=== PATIENT | male | born 1935 | race Caucasian/White ===

== ENCOUNTER 2019-07-29 18:44 | Emergency (ER) | payer OTHER ==
--- NOTE | 2019-07-29 18:49 | PDOC ---
Rapid Medical Evaluation Chief Complaint: Nausea/Vomiting Time Seen by Provider: 07/29/19 18:47 Medical Evaluation: Allergies Allergy/AdvReac Type Severity Reaction Status Date / Time No Known Allergies Allergy Verified 07/03/15 13:55 07/29/19 18:48 Pt c/o: n/v/d, since this am, gen abd pain this am, now slightly confused (as per daughter) no other complaints Pt on brief exam: vss, alert, oriented, no abd tenderness pt ordered for: labs and urine, iv pt to proceed to the ED Discharge Disposition - Diagnosis Vomiting - Referrals - Patient Instructions - Post Discharge Activity
[2019-07-29] MEDS ORDERED: SODIUM CHLORIDE 500 ML IV STA (18:50)
[2019-07-29 18:51] VITALS: BMI 26.2
[2019-07-29 19:25] LABS: BASO % 0.4 % (0-2.0); HEMATOCRIT 35.7 % (35.4-49); HEMOGLOBIN 11.7 GM/dL (11.7-16.9); LYMPH % 2.9 % (8-40); MCH 31.6 pg (25.7-33.7); MCHC 32.9 g/dl (32.0-35.9); MEAN CELL VOLUME 96.2 fl (80-96); MONO % 5.8 % (3.8-10.2); NEUT % 89.9 % (42.8-82.8); PLATELET COUNT 233 K/MM3 (134-434); RBC 3.71 M/mm3 (4.00-5.60); RDW 13.1 % (11.9-15.9); WHITE BLOOD COUNT 10.1 K/mm3 (4.0-10.0)
--- NOTE | 2019-07-29 19:27 | PDOC ---
Documentation entered by Melania Mcqueen SCRIBE, acting as scribe for Michelle Varma MD. Michelle Varma MD: This documentation has been prepared by the leandroibe, Melania Mcqueen SCRIBE, under my direction and personally reviewed by me in its entirety. I confirm that the documentation accurately reflects all work, treatment, procedures, and medical decision making performed by me. Attending Attestation - Resident Resident Name: Angel Osorio - ED Attending Attestation I have performed the following: I have examined & evaluated the patient, The case was reviewed & discussed with the resident, I agree w/resident's findings & plan, Exceptions are as noted - HPI HPI: 07/29/19 19:40 The patient is an 83-year-old male with a past medical history significant for HTN, HLD, hypothyroidism, who presents to the emergency department with diarrhea and confusion. The daughter reports the patient had three episodes of watery bowel movement yesterday and 1 episode today. The patient was noted to be his usual self this morning at 7:00 am when the daughter left for work, however, when she returned at 6:00 pm, the patient was noted to be talking to someone who wasnt there, and daughter reports his speech didnt seem right. Allergies: NKA PCP: Follow up at [facility]. - Physicial Exam PE: 07/29/19 19:35 GENERAL: Well-appearing, well-nourished. No apparent distress. HEENT: No head trauma. Normocephalic, atraumatic. PERRL, EOM intact. NECK: supple, No bruit. CARDIOVASCULAR: Regular rate and rhythm. PULMONARY: Clear to auscultation bilaterally. ABDOMEN: No focal abdominal tenderness. Soft, non-distended, non-tender. EXTREMITIES: No pitting edema. Normal ROM in all four extremities. No gross deformities. SKIN: Warm, dry. No rash NEUROLOGICAL: conversant, Alert and oriented x1, moving all extremities. - Medical Decision Making 07/29/19 22:05 Repeat blood pressure systolic was 107 CAT scan of the head was negative for any acute intracranial pathology Labs show renal insufficiency with a creatinine 1.9 We do not have prior chemistries for comparison Patient referred to [facility]. to follow-up with PCP Nausea and vomiting resolved Impression gastroenteritis, renal insufficiency
[2019-07-29 19:31] LABS: EPI CELLS 3.1 /HPF (0-5/HPF); HYALINE CASTS 19 /lpf (0-8); URINE APPEARANCE CLEAR; URINE BACTERIA 0.3 /hpf (NEGATIVE); URINE BILIRUBIN NEGATIVE (NEGATIVE); URINE COLOR YELLOW; URINE GLUCOSE (UA) NEGATIVE (NEGATIVE); URINE KETONE TRACE (NEGATIVE); URINE LEUK ESTERASE NEGATIVE (NEGATIVE); URINE NITRITE NEGATIVE (NEGATIVE); URINE PROTEIN 1+ (NEGATIVE); URINE RBC 9 /hpf (0-4); URINE UROBILINOGEN 0.2 mg/dL (0.2-1.0); URINE WBC 1 /hpf (0-5)
[2019-07-29] MEDS ORDERED: SODIUM CHLORIDE 0.9% 500 ML INFUS.BAG IV ONE ×2 (19:39→20:27)
[2019-07-29 19:43] LABS: LIPASE 132 U/L (73-393)
[2019-07-29 19:50] LABS: ALBUMIN 3.7 g/dl (3.4-5.0); BILIRUBIN,TOTAL 0.3 mg/dL (0.2-1); CALCIUM 8.5 mg/dL (8.5-10.1); CREATININE 1.9 mg/dL (0.55-1.3); POTASSIUM 4.7 mmol/L (3.5-5.1); TOT PROT 7.1 g/dl (6.4-8.2)
--- NOTE | 2019-07-29 20:06 | PDOC ---
History of Present Illness - General Chief Complaint: Nausea/Vomiting Stated Complaint: Vomiting, confusion Time Seen by Provider: 07/29/19 18:47 - History of Present Illness Initial Comments: The pt is a 83M w/ a history of hypothyroidism, HTN, HLD who presents for evaluation of 2 days of NBNB vomiting, NB diarrhea, and confusion. The pt reports 1 episode of vomiting today and 3 yesterday. Reports 3 episodes of watery diarrhea today. Per the pt's daughter the pt was noticed to be confused at home, stating that he was talking to people who weren't there and states seeing people that weren't there. The pt was last seen well at 0700 this AM. Pt and family deny falls/trauma. Pt has been compliant with meds Denies fevers/chills, cough, chest pain, abdominal pain, dysuria, hematuria, or changes in sensation 07/29/19 20:00 Past History - Past Medical History Allergies/Adverse Reactions: Allergies Allergy/AdvReac Type Severity Reaction Status Date / Time No Known Allergies Allergy Verified 07/29/19 18:51 Home Medications: Ambulatory Orders NK [No Known Home Medication] 07/29/19 COPD: No GI Disorders: Yes (GERD) HTN: Yes Hypercholesterolemia: Yes Kidney Stones: (kidney problem) Other medical history: Glaucoma - Immunization History Td Vaccination: No - Psycho Social/Smoking Cessation Hx Smoking Status: No Smoking History: Never smoked Number of Cigarettes Smoked Daily: 0 Information on smoking cessation initiated: No Hx Alcohol Use: No Drug/Substance Use Hx: No Substance Use Type: None Review of Systems - Review of Systems Able to Perform ROS?: Yes Comments:: GENERAL/CONSTITUTIONAL: No fever or chills. No weakness HEAD, EYES, EARS, NOSE AND THROAT: No change in vision. No change in hearing. No sore throat CARDIOVASCULAR: No chest pain or shortness of breath RESPIRATORY: Denies cough, hemoptysis GASTROINTESTINAL: per HPI GENITOURINARY: No dysuria, frequency, or change in urination MUSCULOSKELETAL: No joint or muscle swelling or pain. No neck or back pain SKIN: No rash NEUROLOGIC: No headache, vertigo, loss of consciousness, or change in strength/ sensation ENDOCRINE: No increased thirst. No abnormal weight change HEMATOLOGIC/LYMPHATIC: No anemia, easy bleeding, or history of blood clots ALLERGIC/IMMUNOLOGIC: No hives or skin allergy 07/29/19 20:59 *Physical Exam - Vital Signs Last Vital Signs Temp Pulse Resp BP Pulse Ox 98 F 105 H 19 86/50 L 97 07/29/19 18:48 07/29/19 18:48 07/29/19 18:48 07/29/19 18:48 07/29/19 18:48 - Physical Exam GENERAL: Awake, alert, and oriented to person/place/time, in no acute distress HEAD: No signs of trauma, normocephalic, atraumatic EYES: PERRLA, EOMI, sclera anicteric, conjunctiva clear ENT: Hearing grossly normal, nares patent, oropharynx clear without exudates. Moist mucosa LUNGS: No distress, speaks in full sentences, clear to auscultation bilaterally HEART: Regular rate and rhythm, normal S1 and S2, no murmurs appreciated, peripheral pulses normal and equal bilaterally ABDOMEN: Soft, nontender, normoactive bowel sounds. No guarding, no rebound EXTREMITIES: Normal inspection, Normal range of motion, no edema. No clubbing or cyanosis NEUROLOGICAL: Cranial nerves II through XII grossly intact. Normal speech, normal gait, no focal sensorimotor deficits SKIN: Warm, Dry 07/29/19 20:59 ED Treatment Course - LABORATORY CBC & Chemistry Diagram: 07/29/19 19:05 07/29/19 19:05 - ADDITIONAL ORDERS Additional order review: Laboratory Results 07/29/19 07/29/19 07/29/19 19:05 19:05 19:05 Sodium 138 Potassium 4.7 Chloride 108 H Carbon Dioxide 22 Anion Gap 9 BUN 50.0 H Creatinine 1.9 H Est GFR (CKD-EPI)AfAm 37.48 Est GFR (CKD-EPI)NonAf 32.34 Random Glucose 146 H Calcium 8.5 Magnesium 2.0 Total Bilirubin 0.3 AST 27 ALT 35 Alkaline Phosphatase 51 Total Protein 7.1 Albumin 3.7 Lipase 132 Urine Color Yellow Urine Appearance Clear Urine pH 5.0 Ur Specific [place] 1.019 Urine Protein 1+ H Urine Glucose (UA) Negative Urine Ketones Trace H Urine Blood 2+ H Urine Nitrite Negative Urine Bilirubin Negative Urine Urobilinogen 0.2 Ur Leukocyte Esterase Negative Urine WBC (Auto) 1 Urine RBC (Auto) 9 Urine Casts (Auto) 19 U Epithel Cells (Auto) 3.1 Urine Bacteria (Auto) 0.3 07/29/19 19:05 RBC 3.71 L MCV 96.2 H MCHC 32.9 RDW 13.1 MPV 8.0 Neutrophils % 89.9 H Lymphocytes % 2.9 L Monocytes % 5.8 Eosinophils % 1.0 Basophils % 0.4 - RADIOLOGY Radiology Studies Ordered: Category Date Time Status HEAD CT WITHOUT CONTRAST [CT] Stat CT Scan 07/29/19 19:40 Ordered Radiograph Interpretation: CT/HEAD CT WITHOUT CONTRAST No intracranial hemorrhage is seen. There is no extra-axial fluid collection. No obvious mass lesion or infarct is noted. Mild periventricular chronic microvascular ischemic changes are seen. Involutional changes are noted with mild ventricular dilatation. The calvarium appears intact. Impression: No CT evidence of acute intracranial pathology. There is moderate to marked bilateral ethmoid sinus opacification is seen consistent with sinusitis - ? chronic versus acute. Correlate clinically. 07/29/19 21:32 Medical Decision Making - Medical Decision Making The pt is a 83M w/ a history of hypothyroidism, HTN, HLD who presents for evaluation of 2 days of NBNB vomiting, NB diarrhea, and confusion. Ddx: ACS, stroke, lyte disturbance, thyroid disfunction, infection, anemia ED Course CMP, CBC, TSH, Trop I, UA, UCx ECG CXR CT head ECG w/ sinus tachycardia; HR 100; QTc 446; no SAJI 07/29/19 20:06 No leukocytosis No anemia Lytes unremarkable BUN/Cr elevated, no previous to compare. Pt may have history of CKD but pt and family are unsure of severity LFTs wnl TSH wnl 07/29/19 20:12 Trop I neg Pt pending CT head 07/29/19 20:27 UA w/ ketones, pt given 2L IVF -no evidence of UTI 07/29/19 21:27 CT head w/o acute pathology Plan for D/C w/ PCP and neurology f/u Discharge instructions and return precautions given Patient in agreement and verbalized understanding Dispo: Home 07/29/19 21:33 Discharge - Discharge Information Problems reviewed: Yes Clinical Impression/Diagnosis: Confusion Nausea and vomiting Qualifiers: Vomiting type: unspecified Vomiting Intractability: non-intractable Qualified Code(s): R11.2 - Nausea with vomiting, unspecified Diarrhea Qualifiers: Diarrhea type: unspecified type Qualified Code(s): R19.7 - Diarrhea, unspecified Condition: Stable Disposition: HOME - Admission No - Follow up/Referral Referrals: [facility] [place] [Provider Group] Al Burt MD [Staff Physician] - - Patient Discharge Instructions Patient Printed Discharge Instructions: DI for Vomiting -- Adult, DI for Altered Mental Status Additional Instructions: You were seen in the Emergency Department for evaluation of nausea, vomiting, and confusion. Your nausea and vomiting are likely due to a viral infection. Review the handout provided at discharge. Follow up with your primary care provider. Avoid heavily flavored foods and spicy foods. Start with water/gatorade sips and advance as tolerated. If you try to incorporate solids and vomit, go back to liquids and try advancing slowly again over several hours. Return to the Emergency Department if you develop fevers/chills, chest pain, trouble breathing, inability to tolerate fluids, blood in your stool/vomit, worsening pain, worsening symptoms, or any new/concerning symptoms. You may be experiencing symptoms of early dementia. You should bring this up with your doctor when you go to establish care. New concerning symptoms include sensation changes, one-sided or severe general weakness, facial droop, slurred speech, quick change in vision, or severe headache. Lo vieron en el departamento de emergencias para evaluar nuseas, vmitos y confusin. Sharon nuseas y vmitos probablemente se deban a daija infeccin viral. Revise el folleto proporcionado al nerissa. Marcial un seguimiento con duron proveedor de atencin primaria. Evite los alimentos con mucho sabor y los alimentos picantes. Comience con sorbos de agua / gatorade y avance segn lo tolere. Si intenta incorporar slidos y vmitos, vuelva a los lquidos e intente avanzar lentamente nuevamente irvin varias horas. Regrese al Departamento de Emergencias si presenta fiebre / escalofros, dolor en el pecho, dificultad para respirar, incapacidad para tolerar lquidos, carol en las heces / vmitos, empeoramiento del dolor, empeoramiento de los sntomas o cualquier sntoma nuevo o preocupante. Puede estar experimentando sntomas de demencia temprana. Debe mencionar esto con duron mdico cuando vaya a establecer atencin. Los nuevos sntomas preocupantes incluyen cambios en la sensacin, debilidad general severa o unilateral, cada facial, dificultad para hablar, cambios rpidos en la visin o dolor de flakito intenso. Print Language: SYRIAC - Post Discharge Activity
[2019-07-29 22:04] VITALS: BP 107/74; PULSE 97; TEMP 98.1
--- NOTE | 2019-07-30 16:44 | EKG ---
Test Reason : Blood Pressure : / mmHG Vent. Rate : 100 BPM Atrial Rate : 100 BPM P-R Int : 176 ms QRS Dur : 090 ms QT Int : 346 ms P-R-T Axes : 066 -27 022 degrees QTc Int : 446 ms NORMAL SINUS RHYTHM NORMAL ECG Confirmed by MD BLOOM GREGORY ([id number]) on 07/30/2019 4:44:00 PM Referred By: Confirmed By:ISMAEL BLOOM MD
== END 2019-07-29 22:05 | disposition home or self-care (01) ==
LOC: JER 18:44
DX: K52.9 Noninfective gastroenteritis and colitis, unspecified (principal); N28.9 Disorder of kidney and ureter, unspecified; R41.0 Disorientation, unspecified; I10 Essential (primary) hypertension; E78.5 Hyperlipidemia, unspecified; E03.9 Hypothyroidism, unspecified
CPT/HCPCS: 36415; 70450-TC; 80053; 81003; 83690; 83735; 84443; 84484; 85025; 87086; 93005; 93010; 99285-25

== ENCOUNTER 2021-08-01 08:19 | Inpatient (IN) | payer OTHER ==
[2021-07-27 16:04] VITALS: BMI 25.7
[2021-08-01] MEDS ORDERED: VANCOMYCIN 1,000 MG VIAL (RESTRICTED TO ID ONLY) ONE ×2 (09:06→11:53)
[2021-08-01] MEDS ORDERED: GABAPENTIN 300 MG CAPSULE PO ONE ×2 (09:06→09:16)
[2021-08-01] MEDS ORDERED: SODIUM CHLORIDE 0.9% P/F 10 ML VIAL IJ ONE ×4 (09:07→11:56)
[2021-08-01] MEDS ORDERED: TRANEXAMIC ACID 1000 MG/10 ML VIAL ONE ×2 (09:07→11:53)
[2021-08-01] MEDS ORDERED: CEFAZOLIN 1 GM/D5W 1 GM/50 ML BAG IVPB ONE (10:00)
[2021-08-01] MEDS ORDERED: MIDAZOLAM HCL 2 MG/2 ML SINGLE DOSE VIAL ONE (10:22)
[2021-08-01] MEDS ORDERED: BUPIVACAINE LIPOSOME/PF (EXPAREL) 266 MG/20 ML VIAL ONE (10:22)
[2021-08-01] MEDS ORDERED: BUPIVACAINE HCL 50 ML ONE ×2 (10:22→10:59)
[2021-08-01] MEDS ORDERED: MAGNESIUM HYDROX 2400MG/30ML ORAL SUSPENSION 30 ML CUP PO PRN (11:04)
[2021-08-01] MEDS ORDERED: ONDANSETRON 4 MG/2 ML VIAL IVPUSH PRN ×2 (11:04→14:08)
[2021-08-01] MEDS ORDERED: MAG HYDROX/AL HYDROX/SIMETH 30 ML UNIT-DOSE CUP PO PRN ×2 (11:04→14:08)
[2021-08-01] MEDS ORDERED: LACTATED RINGERS SOLUTION 1,000 ML IV SCH (11:15)
[2021-08-01] MEDS ORDERED: ceFAZolin SODIUM 1 GM VIAL ONE ×2 (11:53→20:38)
[2021-08-01] MEDS ORDERED: ePHEDrine SULFATE 50 MG/1 ML AMPULE ONE (11:59)
[2021-08-01] MEDS ORDERED: SUCCINYLCHOLINE CHLORIDE 200 MG/10 ML SYRINGE ONE (12:13)
[2021-08-01] MEDS ORDERED: PROPOFOL 20 ML ONE ×3 (12:13→12:33)
[2021-08-01] MEDS ORDERED: BUPIVICAINE 0.25%/MORPH PF/KETOROLAC - 51ML DISP.SYRINGE IA ONE ×2 (13:03→14:30)
[2021-08-01] MEDS ORDERED: VANCOMYCIN 1,000 MG VIAL (RESTRICTED TO ID ONLY) IVPB ONE (14:10)
[2021-08-01] MEDS ORDERED: oxyCODONE HCL 5 MG TABLET PO PRN ×2 (15:23)
[2021-08-01] MEDS ORDERED: ACETAMINOPHEN INJECTION 100 ML IVPB ONE (15:34)
[2021-08-01] MEDS: ACETAMINOPHEN 1000 MG/100 ML BAG IVPB ONE (16:10)
[2021-08-01] MEDS ORDERED: CEFAZOLIN 3 GM in DEXTROSE 5%-WATER - 100 ML IVPB SCH (16:20)
[2021-08-01] MEDS: CEFAZOLIN 2 GM in DEXTROSE 5%-WATER - 50 ML IVPB SCH (19:35)
[2021-08-01] MEDS ORDERED: DEXTROSE 5%-WATER - 50 ML IVPB ONE (20:39)
[2021-08-01] MEDS: SENNOSIDES/DOCUSATE COMBO (SENNA PLUS) TABLET (UD) PO SCH (21:36)
[2021-08-01] MEDS: GABAPENTIN 300 MG CAPSULE PO SCH (21:36)
[2021-08-01] MEDS: ACETAMINOPHEN 500 MG TABLET (FP) PO SCH (21:36)
[2021-08-01] MEDS ORDERED: SENNOSIDES/DOCUSATE COMBO (SENNA PLUS) TABLET (UD) PO SCH (22:00)
[2021-08-01] MEDS ORDERED: GABAPENTIN 300 MG CAPSULE PO SCH (22:00)
[2021-08-02] MEDS ORDERED: ceFAZolin SODIUM 1 GM VIAL ONE ×2 (03:13→10:46)
[2021-08-02] MEDS ORDERED: DEXTROSE 5%-WATER - 50 ML IVPB ONE ×2 (03:13→10:46)
[2021-08-02] MEDS: CEFAZOLIN 2 GM in DEXTROSE 5%-WATER - 50 ML IVPB SCH ×2 (03:41→10:51)
[2021-08-02] MEDS: ACETAMINOPHEN 500 MG TABLET (FP) PO SCH ×4 (03:41→22:35)
[2021-08-02] MEDS: LACTATED RINGERS SOLUTION 1,000 ML IV SCH (08:10)
[2021-08-02] MEDS: ACETAMINOPHEN 1000 MG/100 ML BAG IVPB ONE (08:10)
[2021-08-02 08:24] LABS: CALCIUM 8.4 mg/dl (8.5-10); CREATININE 1.5 mg/dl (0.55-1.3)
[2021-08-02 09:20] LABS: HEMATOCRIT 30.8 % (35.4-49); HEMOGLOBIN 10.1 GM/dL (11.7-16.9); MCH 31.1 pg (25.7-33.7); MCHC 32.9 g/dl (32.0-35.9); MEAN CELL VOLUME 94.6 fl (80-96); PLATELET COUNT 227 10^3/uL (134-434); RBC 3.26 M/mm3 (4.00-5.60); RDW 13.8 % (11.9-15.9); WHITE BLOOD COUNT 8.2 K/mm3 (4.0-10.0)
[2021-08-02] MEDS ORDERED: ASPIRIN 325 MG TABLET PO SCH (10:00)
[2021-08-02] MEDS ORDERED: MULTIVITAMINS (DAILY MVI) TABLET (FP) PO SCH (10:00)
[2021-08-02] MEDS ORDERED: PANTOPRAZOLE 40 MG TABLET PO SCH (10:00)
[2021-08-02] MEDS: SENNOSIDES/DOCUSATE COMBO (SENNA PLUS) TABLET (UD) PO SCH ×2 (10:08→22:37)
[2021-08-02] MEDS: MULTIVITAMINS (DAILY MVI) TABLET (FP) PO SCH (10:08)
[2021-08-02] MEDS: ASPIRIN 325 MG TABLET PO SCH ×2 (10:08→22:38)
[2021-08-02] MEDS: GABAPENTIN 300 MG CAPSULE PO SCH ×2 (10:09→22:35)
[2021-08-02] MEDS: SODIUM BICARBONATE 650 MG TABLET PO SCH ×2 (10:51→22:38)
[2021-08-02] MEDS: LEVOTHYROXINE NA 25 MCG TABLET (FP) PO SCH (10:51)
[2021-08-02] MEDS: CARBIDOPA/LEVODOPA 25/100 TABLET (FP) PO SCH ×3 (10:55→22:37)
[2021-08-02] MEDS: PANTOPRAZOLE 40 MG TABLET PO SCH (12:35)
[2021-08-02] MEDS ORDERED: clonazePAM 0.5 MG TABLET PO SCH (22:00)
[2021-08-02] MEDS: LATANOPROST 0.005% OPHTH SOLN 2.5ML BOTTLE OU SCH (22:00)
[2021-08-02] MEDS: DONEPEZIL HCL 10 MG TABLET (FP) PO SCH (22:35)
[2021-08-02] MEDS: MEMANTINE HCL 5 MG TABLET (UD) PO SCH (22:37)
[2021-08-03] MEDS: ACETAMINOPHEN 500 MG TABLET (FP) PO SCH ×5 (04:44→21:27)
[2021-08-03] MEDS: CARBIDOPA/LEVODOPA 25/100 TABLET (FP) PO SCH ×3 (07:10→21:31)
[2021-08-03] MEDS: LEVOTHYROXINE NA 25 MCG TABLET (FP) PO SCH (07:10)
[2021-08-03 08:32] LABS: HEMATOCRIT 28.3 % (35.4-49); HEMOGLOBIN 9.6 GM/dL (11.7-16.9); MCH 31.3 pg (25.7-33.7); MCHC 33.8 g/dl (32.0-35.9); MEAN CELL VOLUME 92.5 fl (80-96); MEAN PLT VOLUME 7.6 fl (7.5-11.1); PLATELET COUNT 213 10^3/uL (134-434); RBC 3.06 M/mm3 (4.00-5.60); WHITE BLOOD COUNT 12.2 K/mm3 (4.0-10.0)
[2021-08-03] MEDS: ASPIRIN 325 MG TABLET PO SCH (09:54)
[2021-08-03] MEDS: SENNOSIDES/DOCUSATE COMBO (SENNA PLUS) TABLET (UD) PO SCH ×2 (09:55→23:17)
[2021-08-03] MEDS: GABAPENTIN 300 MG CAPSULE PO SCH (09:56)
[2021-08-03] MEDS: MEMANTINE HCL 5 MG TABLET (UD) PO SCH ×2 (09:56→21:31)
[2021-08-03] MEDS: PANTOPRAZOLE 40 MG TABLET PO SCH (09:57)
[2021-08-03] MEDS: MULTIVITAMINS (DAILY MVI) TABLET (FP) PO SCH (09:57)
[2021-08-03] MEDS: SODIUM BICARBONATE 650 MG TABLET PO SCH ×2 (09:57→21:31)
[2021-08-03] MEDS ORDERED: TAMSULOSIN HCL 0.4 MG CAP PO SCH (10:00)
[2021-08-03] MEDS ORDERED: PANTOPRAZOLE 40 MG TABLET PO SCH (10:00)
[2021-08-03 11:18] LABS: ALBUMIN 3.2 g/dl (3.4-5.0); BILIRUBIN,TOTAL 0.8 mg/dl (0.2-1); CALCIUM 9.1 mg/dl (8.5-10); CREATININE 1.6 mg/dl (0.55-1.3); MAGNESIUM 1.8 mg/dL (1.8-2.4)
[2021-08-03] MEDS ORDERED: SODIUM CHLORIDE 250 ML IV STA (12:59)
[2021-08-03] MEDS ORDERED: SODIUM CHLORIDE 1,000 ML IV SCH ×2 (13:00→14:52)
[2021-08-03 13:57] LABS: BILIRUBIN,TOTAL 0.8 mg/dl (0.2-1); CALCIUM 8.5 mg/dl (8.5-10); CREATININE 1.6 mg/dl (0.55-1.3); MAGNESIUM 1.7 mg/dL (1.8-2.4); TOT PROT 5.7 g/dl (6.4-8.2)
[2021-08-03] MEDS: LACTATED RINGERS SOLUTION 1,000 ML IV SCH ×2 (14:16→16:14)
[2021-08-03] MEDS ORDERED: MAGNESIUM SULF 50% (8.12 MEQ/2 ML-1 GM VIAL) IVPB ONE (14:28)
[2021-08-03 14:51] LABS: BASO % 0.5 % (0-2.0); EOS % 0.4 % (0-4.5); HEMATOCRIT 26.6 % (35.4-49); HEMOGLOBIN 8.8 GM/dL (11.7-16.9); LYMPH % 10.2 % (8-40); MEAN CELL VOLUME 93.9 fl (80-96); MEAN PLT VOLUME 8.1 fl (7.5-11.1); MONO % 11.1 % (3.8-10.2); NEUT % 77.8 % (42.8-82.8); PLATELET COUNT 202 10^3/uL (134-434); RBC 2.83 M/mm3 (4.00-5.60); WHITE BLOOD COUNT 11.4 K/mm3 (4.0-10.0)
[2021-08-03] MEDS ORDERED: MAGNESIUM 1GM/D5W - 1 GM/100 ML IVPB IVPB ONE (15:00)
[2021-08-03] MEDS ORDERED: SODIUM CHLORIDE 0.9% 500 ML INFUS.BAG IV ONE (16:53)
[2021-08-03] MEDS ORDERED: ACETAMINOPHEN 1000 MG/100 ML BAG IVPB ONE (16:54)
[2021-08-03] MEDS ORDERED: VANCOMYCIN 1,000 MG in DEXTROSE 5%-WATER - 250 ML IVPB ONE (16:55)
[2021-08-03] MEDS ORDERED: PIPERACILLIN/TAZOB 3.375 GM 3.375 GM in DEXTROSE 5%-WATER - 50 ML IVPB ONE (16:56)
[2021-08-03] MEDS ORDERED: PIPERACILLIN/TAZOBACTAM 3.375 GM VIAL IVPB ONE (17:01)
[2021-08-03] MEDS ORDERED: DEXTROSE 5%-WATER - 50 ML IVPB ONE (17:02)
[2021-08-03 17:17] LABS: BILIRUBIN,TOTAL 0.8 mg/dl (0.2-1); CALCIUM 8.5 mg/dl (8.5-10); CREATININE 1.6 mg/dl (0.55-1.3); TOT PROT 5.8 g/dl (6.4-8.2)
[2021-08-03 18:32] LABS: VENOUS BASE EXCESS -0.2 mmol/L (-2-2); VENOUS O2 SATURATION 62.2 % (70-80); VENOUS PCO2 50.2 mmHg (38-52); VENOUS PH 7.332 (7.310-7.410)
[2021-08-03 18:44] LABS: BASO % 0.5 % (0-2.0); EOS % 1.5 % (0-4.5); HEMATOCRIT 26.2 % (35.4-49); HEMOGLOBIN 8.4 GM/dL (11.7-16.9); LYMPH % 11.7 % (8-40); MCH 30.3 pg (25.7-33.7); MCHC 32.2 g/dl (32.0-35.9); MEAN PLT VOLUME 8.2 fl (7.5-11.1); MONO % 11.5 % (3.8-10.2); NEUT % 74.8 % (42.8-82.8); PLATELET COUNT 205 10^3/uL (134-434); RBC 2.79 M/mm3 (4.00-5.60); RDW 14.1 % (11.9-15.9)
[2021-08-03] MEDS: DONEPEZIL HCL 10 MG TABLET (FP) PO SCH (21:31)
[2021-08-03] MEDS ORDERED: SODIUM CHLORIDE 500 ML IV STA (21:39)
[2021-08-03] MEDS ORDERED: GABAPENTIN 100 MG CAPSULE PO SCH (22:00)
[2021-08-03] MEDS ORDERED: APIXABAN 5 MG TABLET PO SCH (22:00)
[2021-08-03] MEDS: LATANOPROST 0.005% OPHTH SOLN 2.5ML BOTTLE OU SCH (23:19)
[2021-08-04] MEDS ORDERED: MAG HYDROX/AL HYDROX/SIMETH 30 ML UNIT-DOSE CUP PO PRN (03:02)
[2021-08-04] MEDS ORDERED: ONDANSETRON 4 MG/2 ML VIAL IVPUSH PRN (03:02)
[2021-08-04] MEDS ORDERED: SODIUM CHLORIDE 500 ML IV STA (03:02)
[2021-08-04] MEDS: ACETAMINOPHEN 500 MG TABLET (FP) PO SCH ×3 (03:10→16:32)
[2021-08-04] MEDS ORDERED: LORazepam 2 MG/ML SDV VIAL IVPUSH ONE ×2 (04:25→20:53)
[2021-08-04] MEDS: CARBIDOPA/LEVODOPA 25/100 TABLET (FP) PO SCH ×3 (07:40→21:05)
[2021-08-04] MEDS: LEVOTHYROXINE NA 25 MCG TABLET (FP) PO SCH (07:40)
[2021-08-04] MEDS ORDERED: PIPERACILLIN/TAZOB 2.25 GM 2.25 GM in DEXTROSE 5%-WATER - 50 ML IVPB ONE (08:02)
[2021-08-04 08:36] LABS: BASO % 0.5 % (0-2.0); EOS % 3.1 % (0-4.5); HEMATOCRIT 24.3 % (35.4-49); HEMOGLOBIN 8.1 GM/dL (11.7-16.9); LYMPH % 9.1 % (8-40); MCH 31.1 pg (25.7-33.7); MCHC 33.3 g/dl (32.0-35.9); MEAN CELL VOLUME 93.4 fl (80-96); MEAN PLT VOLUME 8.1 fl (7.5-11.1); MONO % 8.7 % (3.8-10.2); NEUT % 78.6 % (42.8-82.8); PLATELET COUNT 194 10^3/uL (134-434); RDW 14.2 % (11.9-15.9); WHITE BLOOD COUNT 10.3 K/mm3 (4.0-10.0)
[2021-08-04 08:42] LABS: CALCIUM 8.1 mg/dL (8.5-10.1)
[2021-08-04 08:43] LABS: ALBUMIN 2.5 g/dl (3.4-5.0); BLOOD UREA NITROGEN 25.4 mg/dL (7-18); MAGNESIUM 2.4 mg/dL (1.8-2.4)
[2021-08-04 08:46] LABS: CREATININE 1.5 mg/dL (0.55-1.3)
[2021-08-04 08:47] LABS: BILIRUBIN,TOTAL 0.6 mg/dL (0.2-1); TOT PROT 5.4 g/dl (6.4-8.2)
[2021-08-04] MEDS ORDERED: PIPERACILLIN/TAZOBACTAM 2.25 GM VIAL IVPB ONE (09:31)
[2021-08-04] MEDS ORDERED: DEXTROSE 5%-WATER - 50 ML IVPB ONE (09:32)
[2021-08-04] MEDS: SENNOSIDES/DOCUSATE COMBO (SENNA PLUS) TABLET (UD) PO SCH ×2 (09:58→21:05)
[2021-08-04] MEDS: PANTOPRAZOLE 40 MG TABLET PO SCH (09:59)
[2021-08-04] MEDS: TAMSULOSIN HCL 0.4 MG CAP PO SCH (10:00)
[2021-08-04] MEDS: MULTIVITAMINS (DAILY MVI) TABLET (FP) PO SCH (10:00)
[2021-08-04] MEDS: SODIUM BICARBONATE 650 MG TABLET PO SCH ×2 (10:00→21:05)
[2021-08-04] MEDS: APIXABAN 5 MG TABLET PO SCH ×2 (10:00→21:06)
[2021-08-04] MEDS: MEMANTINE HCL 5 MG TABLET (UD) PO SCH ×2 (10:01→21:06)
[2021-08-04] MEDS ORDERED: DEXTROSE 5%-WATER 100 ML IVPB ONE (14:45)
[2021-08-04] MEDS: CEFTRIAXONE 2 GM in DEXTROSE 5%-WATER 100 ML IVPB SCH (15:26)
[2021-08-04] MEDS: DONEPEZIL HCL 10 MG TABLET (FP) PO SCH (21:05)
[2021-08-04] MEDS: GABAPENTIN 100 MG CAPSULE PO SCH (21:06)
[2021-08-04] MEDS: LATANOPROST 0.005% OPHTH SOLN 2.5ML BOTTLE OU SCH (22:40)
[2021-08-05] MEDS: LEVOTHYROXINE NA 25 MCG TABLET (FP) PO SCH (06:42)
[2021-08-05] MEDS: CARBIDOPA/LEVODOPA 25/100 TABLET (FP) PO SCH ×3 (06:42→21:48)
[2021-08-05] MEDS ORDERED: DEXTROSE 5%-WATER 100 ML IVPB ONE (08:05)
[2021-08-05] MEDS: ACETAMINOPHEN 1000 MG/100 ML BAG IVPB PRN ×2 (09:00→16:00)
[2021-08-05] MEDS: TAMSULOSIN HCL 0.4 MG CAP PO SCH (10:42)
[2021-08-05] MEDS: MULTIVITAMINS (DAILY MVI) TABLET (FP) PO SCH (10:43)
[2021-08-05] MEDS: CEFTRIAXONE 2 GM in DEXTROSE 5%-WATER 100 ML IVPB SCH (10:43)
[2021-08-05] MEDS: SENNOSIDES/DOCUSATE COMBO (SENNA PLUS) TABLET (UD) PO SCH ×2 (10:43→21:37)
[2021-08-05] MEDS: APIXABAN 5 MG TABLET PO SCH ×2 (10:43→21:48)
[2021-08-05] MEDS: PANTOPRAZOLE 40 MG TABLET PO SCH (10:43)
[2021-08-05] MEDS: MEMANTINE HCL 5 MG TABLET (UD) PO SCH ×2 (10:43→21:48)
[2021-08-05] MEDS: SODIUM BICARBONATE 650 MG TABLET PO SCH ×2 (10:43→21:49)
[2021-08-05] MEDS ORDERED: DEXTROSE 5%-WATER - 50 ML IVPB ONE ×2 (13:14→16:44)
[2021-08-05] MEDS ORDERED: PIPERACILLIN/TAZOBACTAM 3.375 GM VIAL IVPB ONE ×2 (13:14→16:44)
[2021-08-05] MEDS: PIPERACILLIN/TAZOB 3.375 GM 3.375 GM in DEXTROSE 5%-WATER - 50 ML IVPB SCH ×2 (13:16→19:00)
[2021-08-05] MEDS ORDERED: IRON SUCROSE INJECTION 100 MG in SODIUM CHLORIDE 95 ML IVPB ONE (16:00)
[2021-08-05] MEDS ORDERED: LORazepam 2 MG/ML SDV VIAL IVPUSH ONE (20:17)
[2021-08-05] MEDS: DONEPEZIL HCL 10 MG TABLET (FP) PO SCH (21:48)
[2021-08-05] MEDS: GABAPENTIN 100 MG CAPSULE PO SCH (21:48)
[2021-08-05] MEDS: LATANOPROST 0.005% OPHTH SOLN 2.5ML BOTTLE OU SCH (21:49)
[2021-08-06] MEDS ORDERED: PIPERACILLIN/TAZOBACTAM 3.375 GM VIAL IVPB ONE ×4 (01:07→18:09)
[2021-08-06] MEDS ORDERED: DEXTROSE 5%-WATER - 50 ML IVPB ONE ×4 (01:08→18:10)
[2021-08-06] MEDS: PIPERACILLIN/TAZOB 3.375 GM 3.375 GM in DEXTROSE 5%-WATER - 50 ML IVPB SCH ×3 (02:08→18:07)
[2021-08-06] MEDS: LEVOTHYROXINE NA 25 MCG TABLET (FP) PO SCH (06:37)
[2021-08-06] MEDS: CARBIDOPA/LEVODOPA 25/100 TABLET (FP) PO SCH ×3 (06:37→23:00)
[2021-08-06 07:11] LABS: BASO % 0.6 % (0-2.0); EOS % 3.3 % (0-4.5); HEMATOCRIT 24.8 % (35.4-49); HEMOGLOBIN 8.6 GM/dL (11.7-16.9); LYMPH % 13.5 % (8-40); MCHC 34.6 g/dl (32.0-35.9); MEAN CELL VOLUME 92.6 fl (80-96); MEAN PLT VOLUME 7.2 fl (7.5-11.1); MONO % 9.8 % (3.8-10.2); NEUT % 72.8 % (42.8-82.8); PLATELET COUNT 256 10^3/uL (134-434); RBC 2.68 M/mm3 (4.00-5.60); WHITE BLOOD COUNT 7.4 K/mm3 (4.0-10.0)
[2021-08-06 07:29] LABS: ALBUMIN 2.6 g/dl (3.4-5.0); CALCIUM 8.2 mg/dL (8.5-10.1)
[2021-08-06 07:30] LABS: BLOOD UREA NITROGEN 22.2 mg/dL (7-18); MAGNESIUM 2.5 mg/dL (1.8-2.4)
[2021-08-06 07:32] LABS: CREATININE 1.8 mg/dL (0.55-1.3)
[2021-08-06 07:34] LABS: BILIRUBIN,TOTAL 0.8 mg/dL (0.2-1)
[2021-08-06] MEDS ORDERED: ACETAMINOPHEN 325 MG TABLET (FP) ONE (08:37)
[2021-08-06] MEDS: TAMSULOSIN HCL 0.4 MG CAP PO SCH (08:56)
[2021-08-06] MEDS ORDERED: MULTIVITAMINS (DAILY MVI) TABLET (FP) PO SCH (10:00)
[2021-08-06] MEDS: APIXABAN 5 MG TABLET PO SCH ×2 (10:03→23:22)
[2021-08-06] MEDS: PANTOPRAZOLE 40 MG TABLET PO SCH (10:04)
[2021-08-06] MEDS: SODIUM BICARBONATE 650 MG TABLET PO SCH ×2 (10:04→23:00)
[2021-08-06] MEDS: MULTIVITAMINS (DAILY MVI) TABLET (FP) PO SCH (10:04)
[2021-08-06] MEDS: MEMANTINE HCL 5 MG TABLET (UD) PO SCH ×2 (10:04→23:00)
[2021-08-06] MEDS: SENNOSIDES/DOCUSATE COMBO (SENNA PLUS) TABLET (UD) PO SCH ×2 (10:23→23:00)
[2021-08-06] MEDS: SODIUM CHLORIDE 0.45% 1,000 ML IV SCH (13:48)
[2021-08-06] MEDS: oxyCODONE HCL 5 MG TABLET PO PRN (14:11)
[2021-08-06] MEDS ORDERED: IRON SUCROSE INJECTION 100 MG in SODIUM CHLORIDE 95 ML IVPB ONE (15:00)
[2021-08-06] MEDS: DONEPEZIL HCL 10 MG TABLET (FP) PO SCH (23:00)
[2021-08-06] MEDS: GABAPENTIN 100 MG CAPSULE PO SCH (23:00)
[2021-08-06] MEDS: LATANOPROST 0.005% OPHTH SOLN 2.5ML BOTTLE OU SCH (23:00)
[2021-08-06] MEDS: LORazepam 2 MG/ML SDV VIAL IVPUSH PRN (23:24)
[2021-08-07] MEDS ORDERED: PIPERACILLIN/TAZOBACTAM 3.375 GM VIAL IVPB ONE ×3 (01:19→17:20)
[2021-08-07] MEDS ORDERED: DEXTROSE 5%-WATER - 50 ML IVPB ONE ×3 (01:19→17:20)
[2021-08-07] MEDS: PIPERACILLIN/TAZOB 3.375 GM 3.375 GM in DEXTROSE 5%-WATER - 50 ML IVPB SCH ×3 (02:02→17:25)
[2021-08-07] MEDS: CARBIDOPA/LEVODOPA 25/100 TABLET (FP) PO SCH ×3 (06:06→21:21)
[2021-08-07] MEDS: LEVOTHYROXINE NA 25 MCG TABLET (FP) PO SCH (06:07)
[2021-08-07 07:32] LABS: BASO % 0.5 % (0-2.0); EOS % 8.9 % (0-4.5); HEMATOCRIT 26.5 % (35.4-49); HEMOGLOBIN 9.1 GM/dL (11.7-16.9); LYMPH % 13.9 % (8-40); MCH 31.9 pg (25.7-33.7); MCHC 34.5 g/dl (32.0-35.9); MEAN CELL VOLUME 92.7 fl (80-96); MEAN PLT VOLUME 6.8 fl (7.5-11.1); MONO % 11.8 % (3.8-10.2); NEUT % 64.9 % (42.8-82.8); PLATELET COUNT 317 10^3/uL (134-434); RBC 2.86 M/mm3 (4.00-5.60); WHITE BLOOD COUNT 7.6 K/mm3 (4.0-10.0)
[2021-08-07 07:51] LABS: CALCIUM 8.3 mg/dL (8.5-10.1)
[2021-08-07 07:52] LABS: ALBUMIN 2.7 g/dl (3.4-5.0); BLOOD UREA NITROGEN 23.6 mg/dL (7-18); MAGNESIUM 2.4 mg/dL (1.8-2.4)
[2021-08-07 07:55] LABS: CREATININE 1.7 mg/dL (0.55-1.3)
[2021-08-07 07:57] LABS: BILIRUBIN,TOTAL 0.5 mg/dL (0.2-1); TOT PROT 6.2 g/dl (6.4-8.2)
[2021-08-07] MEDS: TAMSULOSIN HCL 0.4 MG CAP PO SCH (08:49)
[2021-08-07] MEDS: APIXABAN 5 MG TABLET PO SCH ×2 (09:43→21:19)
[2021-08-07] MEDS: SENNOSIDES/DOCUSATE COMBO (SENNA PLUS) TABLET (UD) PO SCH ×2 (09:43→21:19)
[2021-08-07] MEDS: PANTOPRAZOLE 40 MG TABLET PO SCH (09:43)
[2021-08-07] MEDS: MEMANTINE HCL 5 MG TABLET (UD) PO SCH ×2 (09:43→21:19)
[2021-08-07] MEDS: SODIUM BICARBONATE 650 MG TABLET PO SCH ×2 (09:44→21:19)
[2021-08-07] MEDS: MULTIVITAMINS (DAILY MVI) TABLET (FP) PO SCH (09:44)
[2021-08-07] MEDS: LORazepam 2 MG/ML SDV VIAL IVPUSH PRN (09:44)
[2021-08-07] MEDS: SODIUM CHLORIDE 0.45% 1,000 ML IV SCH (12:10)
[2021-08-07] MEDS: GABAPENTIN 100 MG CAPSULE PO SCH (21:20)
[2021-08-07] MEDS: DONEPEZIL HCL 10 MG TABLET (FP) PO SCH (21:20)
[2021-08-07] MEDS: LATANOPROST 0.005% OPHTH SOLN 2.5ML BOTTLE OU SCH (21:21)
[2021-08-08] MEDS ORDERED: DEXTROSE 5%-WATER - 50 ML IVPB ONE ×3 (01:02→17:38)
[2021-08-08] MEDS ORDERED: PIPERACILLIN/TAZOBACTAM 3.375 GM VIAL IVPB ONE ×3 (01:02→17:38)
[2021-08-08] MEDS: PIPERACILLIN/TAZOB 3.375 GM 3.375 GM in DEXTROSE 5%-WATER - 50 ML IVPB SCH ×3 (01:40→18:00)
[2021-08-08] MEDS: LEVOTHYROXINE NA 25 MCG TABLET (FP) PO SCH ×2 (06:10→06:14)
[2021-08-08] MEDS: CARBIDOPA/LEVODOPA 25/100 TABLET (FP) PO SCH ×4 (06:10→21:15)
[2021-08-08] MEDS ORDERED: ACETAMINOPHEN 1000 MG/100 ML BAG IVPB ONE (06:14)
[2021-08-08 08:17] LABS: BASO % 0.4 % (0-2.0); EOS % 7.9 % (0-4.5); HEMOGLOBIN 8.4 GM/dL (11.7-16.9); LYMPH % 12.6 % (8-40); MCH 31.3 pg (25.7-33.7); MCHC 33.8 g/dl (32.0-35.9); MEAN CELL VOLUME 92.7 fl (80-96); MONO % 10.6 % (3.8-10.2); NEUT % 68.5 % (42.8-82.8); PLATELET COUNT 362 10^3/uL (134-434); RDW 13.8 % (11.9-15.9)
[2021-08-08 08:24] LABS: ALBUMIN 2.5 g/dl (3.4-5.0); CALCIUM 8.7 mg/dL (8.5-10.1)
[2021-08-08 08:25] LABS: BLOOD UREA NITROGEN 22.6 mg/dL (7-18); MAGNESIUM 2.6 mg/dL (1.8-2.4)
[2021-08-08 08:28] LABS: CREATININE 1.5 mg/dL (0.55-1.3)
[2021-08-08 08:29] LABS: BILIRUBIN,TOTAL 0.4 mg/dL (0.2-1); TOT PROT 6.1 g/dl (6.4-8.2)
[2021-08-08] MEDS: PANTOPRAZOLE 40 MG TABLET PO SCH (12:32)
[2021-08-08] MEDS: MULTIVITAMINS (DAILY MVI) TABLET (FP) PO SCH (12:32)
[2021-08-08] MEDS: MEMANTINE HCL 5 MG TABLET (UD) PO SCH ×2 (12:32→21:15)
[2021-08-08] MEDS: APIXABAN 5 MG TABLET PO SCH ×2 (12:32→21:15)
[2021-08-08] MEDS: TAMSULOSIN HCL 0.4 MG CAP PO SCH (12:32)
[2021-08-08] MEDS: SODIUM BICARBONATE 650 MG TABLET PO SCH ×2 (12:33→21:15)
[2021-08-08] MEDS: SENNOSIDES/DOCUSATE COMBO (SENNA PLUS) TABLET (UD) PO SCH ×2 (12:34→21:15)
[2021-08-08] MEDS ORDERED: IRON SUCROSE INJECTION 100 MG in SODIUM CHLORIDE 95 ML IVPB ONE (15:11)
[2021-08-08] MEDS: DONEPEZIL HCL 10 MG TABLET (FP) PO SCH (21:14)
[2021-08-08] MEDS: GABAPENTIN 100 MG CAPSULE PO SCH (21:15)
[2021-08-08] MEDS: LATANOPROST 0.005% OPHTH SOLN 2.5ML BOTTLE OU SCH (21:16)
[2021-08-08] MEDS: DORZOLAMIDE OU SCH (21:16)
[2021-08-08] MEDS: TIMOLOL OU SCH (21:16)
[2021-08-08] MEDS: LORazepam 2 MG/ML SDV VIAL IVPUSH PRN (21:17)
[2021-08-08] MEDS: oxyCODONE HCL 5 MG TABLET PO PRN (21:33)
[2021-08-09] MEDS ORDERED: DEXTROSE 5%-WATER - 50 ML IVPB ONE ×3 (02:58→17:03)
[2021-08-09] MEDS ORDERED: PIPERACILLIN/TAZOBACTAM 3.375 GM VIAL IVPB ONE ×3 (02:58→17:03)
[2021-08-09] MEDS: PIPERACILLIN/TAZOB 3.375 GM 3.375 GM in DEXTROSE 5%-WATER - 50 ML IVPB SCH ×3 (03:00→17:05)
[2021-08-09] MEDS: CARBIDOPA/LEVODOPA 25/100 TABLET (FP) PO SCH ×3 (06:27→22:51)
[2021-08-09] MEDS: LEVOTHYROXINE NA 25 MCG TABLET (FP) PO SCH (06:27)
[2021-08-09 07:40] LABS: BASO % 0.3 % (0-2.0); EOS % 8.6 % (0-4.5); HEMATOCRIT 27.8 % (35.4-49); HEMOGLOBIN 9.4 GM/dL (11.7-16.9); LYMPH % 14.2 % (8-40); MCH 31.7 pg (25.7-33.7); MCHC 33.8 g/dl (32.0-35.9); MEAN CELL VOLUME 93.9 fl (80-96); MONO % 11.9 % (3.8-10.2); PLATELET COUNT 458 10^3/uL (134-434); RBC 2.96 M/mm3 (4.00-5.60); RDW 14.2 % (11.9-15.9); WHITE BLOOD COUNT 10.9 K/mm3 (4.0-10.0)
[2021-08-09 07:59] LABS: ALBUMIN 2.5 g/dl (3.4-5.0); BLOOD UREA NITROGEN 26.5 mg/dL (7-18); CALCIUM 8.1 mg/dL (8.5-10.1); MAGNESIUM 2.5 mg/dL (1.8-2.4)
[2021-08-09 08:02] LABS: CREATININE 1.7 mg/dL (0.55-1.3)
[2021-08-09 08:04] LABS: BILIRUBIN,TOTAL 0.4 mg/dL (0.2-1); TOT PROT 6.1 g/dl (6.4-8.2)
[2021-08-09] MEDS: APIXABAN 5 MG TABLET PO SCH ×2 (09:42→22:50)
[2021-08-09] MEDS: MULTIVITAMINS (DAILY MVI) TABLET (FP) PO SCH (09:42)
[2021-08-09] MEDS: SODIUM BICARBONATE 650 MG TABLET PO SCH ×2 (09:42→22:51)
[2021-08-09] MEDS: TAMSULOSIN HCL 0.4 MG CAP PO SCH (09:42)
[2021-08-09] MEDS: PANTOPRAZOLE 40 MG TABLET PO SCH (09:42)
[2021-08-09] MEDS: TIMOLOL OU SCH ×2 (09:43→22:50)
[2021-08-09] MEDS: MEMANTINE HCL 5 MG TABLET (UD) PO SCH ×2 (09:43→22:50)
[2021-08-09] MEDS: DORZOLAMIDE OU SCH ×2 (09:43→22:50)
[2021-08-09] MEDS: SENNOSIDES/DOCUSATE COMBO (SENNA PLUS) TABLET (UD) PO SCH ×2 (09:43→22:50)
[2021-08-09] MEDS: oxyCODONE HCL 5 MG TABLET PO PRN (10:00)
[2021-08-09] MEDS: LORazepam 2 MG/ML SDV VIAL IVPUSH PRN (17:06)
[2021-08-09] MEDS: DONEPEZIL HCL 10 MG TABLET (FP) PO SCH (22:50)
[2021-08-09] MEDS: GABAPENTIN 100 MG CAPSULE PO SCH (22:50)
[2021-08-09] MEDS: LATANOPROST 0.005% OPHTH SOLN 2.5ML BOTTLE OU SCH (22:51)
[2021-08-10] MEDS: PIPERACILLIN/TAZOB 3.375 GM 3.375 GM in DEXTROSE 5%-WATER - 50 ML IVPB SCH ×2 (04:00→09:46)
[2021-08-10] MEDS ORDERED: DEXTROSE 5%-WATER - 50 ML IVPB ONE ×2 (05:15→08:17)
[2021-08-10] MEDS ORDERED: PIPERACILLIN/TAZOBACTAM 3.375 GM VIAL IVPB ONE ×2 (05:15→08:17)
[2021-08-10] MEDS: LEVOTHYROXINE NA 25 MCG TABLET (FP) PO SCH (06:10)
[2021-08-10] MEDS: CARBIDOPA/LEVODOPA 25/100 TABLET (FP) PO SCH ×2 (06:10→16:24)
[2021-08-10 09:31] LABS: BASO % 0.4 % (0-2.0); EOS % 3.2 % (0-4.5); HEMATOCRIT 26.5 % (35.4-49); LYMPH % 11.2 % (8-40); MCH 31.3 pg (25.7-33.7); MEAN CELL VOLUME 91.9 fl (80-96); MEAN PLT VOLUME 6.5 fl (7.5-11.1); MONO % 9.3 % (3.8-10.2); NEUT % 75.9 % (42.8-82.8); PLATELET COUNT 533 10^3/uL (134-434); RBC 2.88 M/mm3 (4.00-5.60); RDW 14.3 % (11.9-15.9); WHITE BLOOD COUNT 11.6 K/mm3 (4.0-10.0)
[2021-08-10 09:41] LABS: ALBUMIN 2.6 g/dl (3.4-5.0); CALCIUM 8.8 mg/dL (8.5-10.1)
[2021-08-10 09:42] LABS: BLOOD UREA NITROGEN 28.7 mg/dL (7-18)
[2021-08-10 09:44] LABS: CREATININE 1.7 mg/dL (0.55-1.3)
[2021-08-10] MEDS: MEMANTINE HCL 5 MG TABLET (UD) PO SCH (09:45)
[2021-08-10] MEDS: MULTIVITAMINS (DAILY MVI) TABLET (FP) PO SCH (09:45)
[2021-08-10] MEDS: SODIUM BICARBONATE 650 MG TABLET PO SCH (09:45)
[2021-08-10] MEDS: APIXABAN 5 MG TABLET PO SCH (09:45)
[2021-08-10] MEDS: TAMSULOSIN HCL 0.4 MG CAP PO SCH (09:45)
[2021-08-10] MEDS: PANTOPRAZOLE 40 MG TABLET PO SCH (09:45)
[2021-08-10 09:46] LABS: BILIRUBIN,TOTAL 0.7 mg/dL (0.2-1); TOT PROT 6.8 g/dl (6.4-8.2)
[2021-08-10] MEDS: SENNOSIDES/DOCUSATE COMBO (SENNA PLUS) TABLET (UD) PO SCH (09:46)
[2021-08-10] MEDS: DORZOLAMIDE OU SCH (09:46)
[2021-08-10] MEDS: TIMOLOL OU SCH (09:46)
[2021-08-10] MEDS ORDERED: LORazepam 2 MG/ML SDV VIAL IVPB ONE (12:23)
[2021-08-10] MEDS ORDERED: oxyCODONE HCL 5 MG TABLET PO PRN (12:24)
[2021-08-10 14:07] LABS: SARS-CoV-2 NAA Not Detected (Not Detected)
[2021-08-10 15:29] VITALS: TEMP 98.5
[2021-08-10 15:30] VITALS: BP 118/63; PULSE 80
[2021-08-10] MEDS ORDERED: AMOX TR/POT CLAV 500MG/125MG TABLETS (FP) PO SCH (17:30)
[2021-08-10] MEDS ORDERED: APIXABAN 5 MG TABLET PO SCH (22:00)
== END 2021-08-10 19:05 | DRG 469 ==
LOC: FM/S 08:19 → J4W 08-04 02:45
PROVIDERS: ADMIT Internal Medicine; ATTEND Nurse Practitioner Family
PROC: 0SRD0J9 Replacement of Left Knee Joint with Synthetic Substitute, Cemented, Open Approach (ICD-10-PCS; principal; 2021-08-01 12:31)
PROC: 0T9B70Z Drainage of Bladder with Drainage Device, Via Natural or Artificial Opening (ICD-10-PCS; 2021-08-03)
DX: M17.12 Unilateral primary osteoarthritis, left knee (principal); G93.41 Metabolic encephalopathy; I26.99 Other pulmonary embolism without acute cor pulmonale; J98.11 Atelectasis; N17.9 Acute kidney failure, unspecified; I47.1 Supraventricular tachycardia; J90 Pleural effusion, not elsewhere classified; E78.5 Hyperlipidemia, unspecified; E03.9 Hypothyroidism, unspecified; F03.90 Unspecified dementia, unspecified severity, without behavioral disturbance, psychotic disturbance, mood disturbance, and anxiety; D64.9 Anemia, unspecified; G20 Parkinson's disease; I12.9 Hypertensive chronic kidney disease with stage 1 through stage 4 chronic kidney disease, or unspecified chronic kidney disease; N18.9 Chronic kidney disease, unspecified; R14.3 Flatulence; H54.8 Legal blindness, as defined in USA; Z96.0 Presence of urogenital implants; R33.9 Retention of urine, unspecified; R50.9 Fever, unspecified; R41.82 Altered mental status, unspecified; N40.0 Benign prostatic hyperplasia without lower urinary tract symptoms; R09.02 Hypoxemia; Z85.46 Personal history of malignant neoplasm of prostate
CPT/HCPCS: 36415; 70450-TC; 71045-TC-FY; 71275-TC; 73560-TC-LT-FY; 74230-TC-FY; 80048; 80053; 81003; 82272; 82550; 82553; 82728; 82803; 83540; 83550; 83605; 83735; 83880; 84484; 85025; 85027; 86850; 86900; 86901; 87040; 87086; 92611-GN; 93005; 93010; 93306-TC; 93971-TC; 94760; 97010-GP; 97116-GP; 97162-GP; C9803; J1756; Q9967; U0003; U0005

== ENCOUNTER 2021-12-30 07:02 | Day surgery (SDC) | payer OTHER ==
[2021-12-30] MEDS ORDERED: FERRIC CARBOXYMALTOSE 750 MG in SODIUM CHLORIDE 250 ML IVPB ONE (09:47)
[2021-12-30 12:10] VITALS: BP 127/58; PULSE 52; RESP 16; TEMP 98.2
== END 2021-12-30 11:30 | disposition home or self-care (01) ==
LOC: JONCNONCHE 07:02
PROVIDERS: ATTEND Internal Medicine Hematology & Oncology
PROC: 3E033GC Introduction of Other Therapeutic Substance into Peripheral Vein, Percutaneous Approach (ICD-10-PCS; principal; 2021-12-30)
DX: D64.9 Anemia, unspecified (principal)
CPT/HCPCS: 96365; J1439

== ENCOUNTER 2022-01-06 14:25 | Day surgery (SDC) | payer OTHER ==
[2022-01-06 09:14] LABS: BASO % 0.8 % (0-2.0); EOS % 6.9 % (0-4.5); HEMATOCRIT 36.4 % (35.4-49); HEMOGLOBIN 12.3 GM/dL (11.7-16.9); LYMPH % 26.1 % (8-40); MCHC 33.6 g/dl (32.0-35.9); MEAN CELL VOLUME 89.4 fl (80-96); MEAN PLT VOLUME 7.4 fl (7.5-11.1); MONO % 6.1 % (3.8-10.2); NEUT % 60.1 % (42.8-82.8); PLATELET COUNT 244 10^3/uL (134-434); RBC 4.08 M/mm3 (4.00-5.60); RDW 15.6 % (11.9-15.9)
[2022-01-06 09:40] LABS: ALBUMIN 3.7 g/dl (3.4-5.0); BLOOD UREA NITROGEN 36.2 mg/dL (7-18); CALCIUM 8.7 mg/dL (8.5-10.1)
[2022-01-06 09:43] LABS: CREATININE 1.6 mg/dL (0.55-1.3)
[2022-01-06 09:45] LABS: BILIRUBIN,TOTAL 0.4 mg/dL (0.2-1); TOT PROT 6.7 g/dl (6.4-8.2)
[2022-01-06 13:55] VITALS: TEMP 97.7
[2022-01-06 14:15] VITALS: BP 108/67; PULSE 55; RESP 20
[~2022-01-06 14:25] MED LIST: FERRIC CARBOXYMALTOSE 750 MG in SODIUM CHLORIDE 250 ML IVPB ONE; SODIUM CHLORIDE 250 ML IV ONE
== END 2022-01-06 14:27 | disposition home or self-care (01) ==
LOC: JONCNONCHE 14:25
PROVIDERS: ATTEND Internal Medicine Hematology & Oncology
PROC: 3E033GC Introduction of Other Therapeutic Substance into Peripheral Vein, Percutaneous Approach (ICD-10-PCS; principal; 2022-01-06)
DX: D64.9 Anemia, unspecified (principal)
CPT/HCPCS: 36415; 80053; 85025; 96365; J1439